=== PATIENT | female | born 1990 | race Hispanic/Latino ===

== ENCOUNTER 2018-07-05 10:56 | Emergency (ER) | payer SELFPAY ==
--- OUTSIDE RECORDS SUMMARY | 2018-07-05 10:58 | XMS REPORT ---
:1990 [facility] Address [address] [place] [address] [address] [place] [address] Care Team Providers Name Role Phone Unavailable Unavailable Unavailable Problems This patient has no known problems. Allergies, Adverse Reactions, Alerts This patient has no known allergies or adverse reactions. Medications This patient has no known medications.
[2018-07-05 13:19] LABS: Absolute Lymphocytes (CBC) 2.6 K/uL (0.7-4.9); Absolute Monocytes 0.3 K/uL (0.1-1.3); Absolute Neutrophil 2.2 K/uL (1.8-8.0); Basophils % 0.5 % (0-1.3); Eosinophils % 4.1 % (0-4.4); Hematocrit 40.3 % (36.0-45.0); MPV 9.4 fL (7.6-11.3); Monocytes % 5.7 % (3.3-12.3); RBC Red Blood Cell Count 4.64 M/uL (3.86-4.86)
[2018-07-05 13:24] LABS: Protime INR 0.96
[2018-07-05 13:42] LABS: ALT/SGPT 21 U/L (12-78); AST/SGOT 14 U/L (15-37); Albumin 3.5 g/dL (3.4-5.0); Alkaline Phosphatase 74 U/L (45-117); BUN Blood Urea Nitrogen 16 mg/dL (7-18); Bicarbonate 28 mmol/L (21-32); Bilirubin Direct < 0.1 mg/dL (0-0.2); Bilirubin Total 0.3 mg/dL (0.2-1.0); Glucose Level 79 mg/dL (74-106); Sodium Level 141 mmol/L (136-145)
[2018-07-05 14:05] LABS: Barbiturates NEGATIVE (NEGATIVE); Benzodiazepines NEGATIVE (NEGATIVE); Cocaine NEGATIVE (NEGATIVE); METHAMPHETAM NEGATIVE (NEGATIVE); Methadone NEGATIVE (NEGATIVE); Opiates NEGATIVE (NEGATIVE); Phencyclidine NEGATIVE (NEGATIVE); THC Cannibis NEGATIVE (NEGATIVE)
--- NOTE | 2018-07-05 14:05 | ER ---
Nurse's Notes [facility] Name: Gloria Esquivel Age: 28 yrs Sex: Female : 1990 Arrival Date: 07/05/2018 Time: 10:58 Bed 4 Private MD: Diagnosis: Adjustment disorder with depressed mood;Urinary tract infection, site not specified Presentation: 07/05 10:59 Presenting complaint: EMS states: Called out for unresponsive, on scene pt was hb responsive to painful stimuli, denied taking any meds/alcohol, had c section 20 days ago. Upon arrival pt responsive to verbal stimuli, crying, not verbal at this time. Transition of care: patient was not received from another setting of care. Onset of symptoms was July 05, 2018. Risk Assessment: Do you want to hurt yourself or someone else? Unable to obtain. Care prior to arrival: None. 10:59 Method Of Arrival: EMS: [facility] 10:59 Acuity: MARK 2 hb 14:21 Initial Sepsis Screen: Does the patient meet any 2 criteria? No. Patient's initial tw2 sepsis screen is negative. Does the patient have a suspected source of infection? No. Patient's initial sepsis screen is negative. Triage Assessment: 11:05 General: Appears in no apparent distress. Behavior is cooperative, crying. Pain: Denies hb pain. EENT: No deficits noted. No signs and/or symptoms were reported regarding the EENT system. Neuro: Level of Consciousness is awake, alert, obeys commands, Oriented to person. Cardiovascular: Heart tones S1 S2 present Capillary refill < 3 seconds Patient's skin is warm and dry. Respiratory: Airway is patent Respiratory effort is even, unlabored, Respiratory pattern is regular, symmetrical, Breath sounds are clear bilaterally. GI: No signs and/or symptoms were reported involving the gastrointestinal system. : No signs and/or symptoms were reported regarding the genitourinary system. Derm: Skin is intact, is healthy with good turgor. Musculoskeletal: No signs and/or symptoms reported regarding the musculoskeletal system. Historical: - Allergies: 11:21 No Known Allergies; hb - PSHx: 11:21 ; hb - Immunization history:: Adult Immunizations up to date. - Family history:: not pertinent. - Social history:: Smoking status: Patient/guardian denies using tobacco. - Ebola Screening: : Patient denies travel to an Ebola-affected area in the 21 days before illness onset. Screenin:24 Abuse screen: Denies threats or abuse. Denies injuries from another. Nutritional hb screening: No deficits noted. Tuberculosis screening: No symptoms or risk factors identified. Fall Risk Total Rodriguez Fall Scale indicates Low Risk Score (25-44 pts). Fall prevention measures have been instituted. Side Rails Up X 2 Frequent Obs/Assesments occuring As available Patient and Family Educated on Fall Prevention Program and strategies. Assessment: 11:05 General: see triage assessment. hb 11:45 Reassessment: Patient appears in no apparent distress at this time. Patient and/or hb family updated on plan of care and expected duration. Pain level reassessed. Patient is alert, oriented x 3, equal unlabored respirations, skin warm/dry/pink. 12:30 Reassessment: Patient appears in no apparent distress at this time. Patient and/or hb family updated on plan of care and expected duration. Pain level reassessed. Patient is alert, oriented x 3, equal unlabored respirations, skin warm/dry/pink. 13:30 Reassessment: Patient appears in no apparent distress at this time. Patient and/or hb family updated on plan of care and expected duration. Pain level reassessed. Patient is alert, oriented x 3, equal unlabored respirations, skin warm/dry/pink. 14:27 Reassessment: Discharge teaching done with Romeo Simon # [id number]. hb Vital Signs: 10:58 BP 119 / 100; Pulse 50; Resp 15; Temp 97.9; Pulse Ox 100% on R/A; Pain 0/10; hb 12:00 BP 126 / 88; Pulse 49; Resp 16; Pulse Ox 100% ; hb 13:30 BP 118 / 78; Pulse 54; Resp 16; Pulse Ox 100% on R/A; hb 10:58 Etta (FACES) ED Course: 10:58 Patient arrived in ED. tw2 10:58 Brianna Boland, ARABELLA is Primary Nurse. hb 11:02 Matt Duckworth MD is Attending Physician. gela 11:02 Triage completed. hb 11:03 Arm band placed on. hb 11:15 Patient has correct armband on for positive identification. Placed in gown. Bed in low hb position. Call light in reach. Side rails up X 1. 11:57 EKG done, by emergency vehicle technician. reviewed by Matt Duckworth MD. dt2 14:20 No provider procedures requiring assistance completed. IV discontinued, intact, tw2 bleeding controlled, No redness/swelling at site. Pressure dressing applied. Administered Medications: 14:17 Drug: Rocephin - (cefTRIAXone) 1 grams Route: IVPB; Infused Over: 30 mins; Site: right hb antecubital; 15:15 Follow up: Response: No adverse reaction; IV Status: Completed infusion hb Outcome: 14:04 Discharge ordered by . gela 14:21 Condition: stable tw2 14:26 Discharged to home ambulatory. hb 14:26 Discharge instructions given to patient, Instructed on discharge instructions, follow up and referral plans. medication usage, Demonstrated understanding of instructions, follow-up care, medications, Prescriptions given X 1. 14:28 Patient left the ED. hb Signatures: Matt Duckworth MD MD cha Baxter, Heather RN RN Marisol Smith RN RN tw2 Sandi Delgado dt2 Corrections: (The following items were deleted from the chart) 12:26 11:05 Neuro: Level of Consciousness is awake, alert, obeys commands, Oriented to hb person, place, time, situation, hb
--- NOTE | 2018-07-05 14:05 | EDPHYS ---
Physician Documentation [facility] Name: Gloria Esquivel Age: 28 yrs Sex: Female : 1990 Arrival Date: 07/05/2018 Time: 10:58 Bed 4 Private MD: ED Physician Matt Duckworth HPI: 07/05 11:55 This 28 yrs old Female presents to ER via EMS with complaints of Altered gela Mental Status. 11:55 The patient presents with confusion, decreased mental status. Onset: The gela symptoms/episode began/occurred 2 day(s) ago. Possible causes: unknown. Associated signs and symptoms: The patient has no apparent associated signs or symptoms. Current symptoms: In the emergency department the patient's symptoms have improved, mildly. Patient's baseline: Neuro: Motor: no deficits. The patient has not experienced similar symptoms in the past. Historical: - Allergies: 11:21 No Known Allergies; hb - PSHx: 11:21 ; hb - Immunization history:: Adult Immunizations up to date. - Family history:: not pertinent. - Social history:: Smoking status: Patient/guardian denies using tobacco. - Ebola Screening: : Patient denies travel to an Ebola-affected area in the 21 days before illness onset. ROS: 11:55 Constitutional: Negative for fever, chills, and weight loss, Eyes: Negative for injury, gela pain, redness, and discharge, ENT: Negative for injury, pain, and discharge, Neck: Negative for injury, pain, and swelling, Cardiovascular: Negative for chest pain, palpitations, and edema, Respiratory: Negative for shortness of breath, cough, wheezing, and pleuritic chest pain, Abdomen/GI: Negative for abdominal pain, nausea, vomiting, diarrhea, and constipation, Back: Negative for injury and pain, : Negative for injury, bleeding, discharge, and swelling, MS/Extremity: Negative for injury and deformity, Skin: Negative for injury, rash, and discoloration, Neuro: Negative for headache, weakness, numbness, tingling, and seizure, Allergy/Immunology: Negative for hives, rash, and allergies, Endocrine: Negative for neck swelling, polydipsia, polyuria, polyphagia, and marked weight changes, Hematologic/Lymphatic: Negative for swollen nodes, abnormal bleeding, and unusual bruising. 11:55 Psych: Positive for depression. Exam: 11:55 Constitutional: This is a well developed, well nourished patient who is awake, alert, gela and in no acute distress. Head/Face: Normocephalic, atraumatic. Eyes: Pupils equal round and reactive to light, extra-ocular motions intact. Lids and lashes normal. Conjunctiva and sclera are non-icteric and not injected. Cornea within normal limits. Periorbital areas with no swelling, redness, or edema. ENT: Nares patent. No nasal discharge, no septal abnormalities noted. Tympanic membranes are normal and external auditory canals are clear. Oropharynx with no redness, swelling, or masses, exudates, or evidence of obstruction, uvula midline. Mucous membranes moist. Neck: Trachea midline, no thyromegaly or masses palpated, and no cervical lymphadenopathy. Supple, full range of motion without nuchal rigidity, or vertebral point tenderness. No Meningismus. Chest/axilla: Normal chest wall appearance and motion. Nontender with no deformity. No lesions are appreciated. Cardiovascular: Regular rate and rhythm with a normal S1 and S2. No gallops, murmurs, or rubs. Normal PMI, no JVD. No pulse deficits. Respiratory: Lungs have equal breath sounds bilaterally, clear to auscultation and percussion. No rales, rhonchi or wheezes noted. No increased work of breathing, no retractions or nasal flaring. Abdomen/GI: Soft, non-tender, with normal bowel sounds. No distension or tympany. No guarding or rebound. No evidence of tenderness throughout. Back: No spinal tenderness. No costovertebral tenderness. Full range of motion. Female : Normal external genitalia. Skin: Warm, dry with normal turgor. Normal color with no rashes, no lesions, and no evidence of cellulitis. MS/ Extremity: Pulses equal, no cyanosis. Neurovascular intact. Full, normal range of motion. Neuro: Awake and alert, GCS 15, oriented to person, place, time, and situation. Cranial nerves II-XII grossly intact. Motor strength 5/5 in all extremities. Sensory grossly intact. Cerebellar exam normal. Normal gait. Psych: Awake, alert, with orientation to person, place and time. Behavior, mood, and affect are within normal limits. Vital Signs: 10:58 BP 119 / 100; Pulse 50; Resp 15; Temp 97.9; Pulse Ox 100% on R/A; Pain 0/10; hb 12:00 BP 126 / 88; Pulse 49; Resp 16; Pulse Ox 100% ; hb 13:30 BP 118 / 78; Pulse 54; Resp 16; Pulse Ox 100% on R/A; hb 10:58 Connell-Mccarthy (FACES) hb MDM: 11:02 Patient medically screened. [facility] 11:57 Data reviewed: vital signs, nurses notes, lab test result(s), EKG, radiologic studies. [facility] 07/05 11:18 Order name: Acetaminophen; Complete Time: 14:04 hb 07/05 11:18 Order name: Basic Metabolic Panel; Complete Time: 14:04 07/05 11:18 Order name: CBC with Diff; Complete Time: 13:39 07/05 11:18 Order name: ETOH Level; Complete Time: 14:04 07/05 11:18 Order name: Hepatic Function; Complete Time: 14:04 07/05 11:18 Order name: PT-INR; Complete Time: 13:39 07/05 11:18 Order name: Ptt, Activated; Complete Time: 13:39 07/05 11:18 Order name: Salicylate 07/05 11:18 Order name: Urine Drug Screen 07/05 11:18 Order name: EKG; Complete Time: 11:19 07/05 13:41 Order name: Urine Microscopic Only 07/05 13:49 Order name: Urine Dipstick--Ancillary (enter results) 07/05 13:49 Order name: Urine --Ancillary (enter results) 07/05 11:18 Order name: EKG - Nurse/Tech; Complete Time: 11:19 07/05 11:18 Order name: IV Saline Lock; Complete Time: 11:19 07/05 11:18 Order name: Labs collected and sent; Complete Time: 11:20 07/05 11:18 Order name: Urine Dipstick-Ancillary (obtain specimen); Complete Time: 13:47 07/05 11:58 Order name: Urine Test (obtain specimen); Complete Time: 13:47 [facility] 07/05 14:06 Order name: Vital Signs; Complete Time: 14:16 [facility] Administered Medications: 14:17 Drug: Rocephin - (cefTRIAXone) 1 grams Route: IVPB; Infused Over: 30 mins; Site: right hb antecubital; 15:15 Follow up: Response: No adverse reaction; IV Status: Completed infusion Disposition: 07/05/18 14:04 Discharged to Home. Impression: Adjustment disorder with depressed mood, Urinary tract infection, site not specified. - Condition is Stable. - Discharge Instructions: Adjustment Disorder, Adult, Urinary Tract Infection, Adult, Depression and Baby Blues, Urinary Tract Infection, Adult, [id number], Persistent Depressive Disorder, Persistent Depressive Disorder, [id number]. - Prescriptions for Keflex 500 mg Oral Capsule - take 1 capsule by ORAL route every 8 hours for 7 days; 21 capsule. - Medication Reconciliation Form, Thank You Letter, Antibiotic Education, Prescription Opioid Use form. - Follow up: Private Physician; When: 2 - 3 days; Reason: Recheck today's complaints, Continuance of care, Re-evaluation by your physician. - Problem is new. - Symptoms have improved. Signatures: Dispatcher [employer] [facility]VA Matt Duckworth MD MD cha Baxter, Heather, RN RN Marisol Smith RN RN tw2 Corrections: (The following items were deleted from the chart) 14:06 14:04 07/05/2018 14:04 Discharged to Home. Impression: Adjustment disorder with [facility] depressed mood. Condition is Stable. Discharge Instructions: Adjustment Disorder, Adult, Depression and Baby Blues, Persistent Depressive Disorder, Persistent Depressive Disorder, [id number]. Forms are Medication Reconciliation Form, Thank You Letter, Antibiotic Education, Prescription Opioid Use. Follow up: Private Physician; When: 2 - 3 days; Reason: Recheck today's complaints, Continuance of care, Re-evaluation by your physician. Problem is new. Symptoms have improved. [facility] 14:28 14:06 07/05/2018 14:04 Discharged to Home. Impression: Adjustment disorder with hb depressed mood; Urinary tract infection, site not specified. Condition is Stable. Discharge Instructions: Adjustment Disorder, Adult, Depression and Baby Blues, Persistent Depressive Disorder, Persistent Depressive Disorder, [id number]. Forms are Medication Reconciliation Form, Thank You Letter, Antibiotic Education, Prescription Opioid Use. Follow up: Private Physician; When: 2 - 3 days; Reason: Recheck today's complaints, Continuance of care, Re-evaluation by your physician. Problem is new. Symptoms have improved. gela
[2018-07-05 14:21] LABS: Urine Blood 2+ (NEG); Urine Glucose NEGATIVE (NEG); Urine Protein NEGATIVE (NEG); Urine Specific Gravity 1.015 (1.005-1.030)
[2018-07-05] MEDS ORDERED: CEFTRIAXONE/SWI 1gm 1 GM/10 ML SYR ONE (14:29)
[2018-07-05 15:03] LABS: Urine Bacteria <20 /HPF (<20); Urine Culture Reflex Order REFLEXED; Urine RBC <5 /HPF (NONE SEEN)
--- NOTE | 2018-07-05 21:17 | EKG ---
Test Date: 2018-07-05 Test Time: 11:47:24 Bale Stacker: VERONICA MEASUREMENT RESULTS: Intervals: Rate: 43 [place]: 154 QRSD: 88 QT: 478 QTc: 403 [place]: P: 49 [place]: 154 QRS: 81 T: 79 INTERPRETIVE STATEMENTS: Marked sinus bradycardia Abnormal ECG No previous ECG available for comparison Electronically Signed On 07-05-18 21:16:48 CDT by Brice Diaz
== END 2018-07-05 14:28 | disposition home or self-care (01) ==
LOC: ER 10:56
DX: F43.21 Adjustment disorder with depressed mood (principal); N39.0 Urinary tract infection, site not specified
CPT/HCPCS: 36415; 80048; 80076; 80307; 80320; 80329; 81003; 81015; 81025; 85025; 85610; 85730; 87077; 87086; 87088; 87186; 93005; 96365; 99284; J0696

== ENCOUNTER 2019-07-11 09:36 | Emergency (ER) | payer SELFPAY, OTHER ==
--- OUTSIDE RECORDS SUMMARY | 2019-07-11 09:39 | XMS REPORT ---
:1990 [facility] Address [address] [place] [address] Care Team Providers Name Role Phone Unavailable Unavailable Unavailable Problems This patient has no known problems. Allergies, Adverse Reactions, Alerts This patient has no known allergies or adverse reactions. Medications This patient has no known medications.
[2019-07-11 10:50] LABS: Urine Bacteria <20 /HPF (<20); Urine Culture Reflex Order NOT NEEDED; Urine Mucus 2+ /HPF (NONE SEEN); Urine RBC <5 /HPF (NONE SEEN)
[2019-07-11 10:53] LABS: Absolute Lymphocytes (CBC) 1.8 K/uL (0.7-4.9); Basophils % 0.4 % (0-1.3); Hematocrit 36.5 % (36.0-45.0); Lymphocytes % 29.9 % (15.3-44.8); MPV 8.7 fL (7.6-11.3); RBC Red Blood Cell Count 4.45 M/uL (3.86-4.86)
[2019-07-11 11:28] LABS: ALT/SGPT 16 U/L (12-78); AST/SGOT 13 U/L (15-37); Albumin 3.5 g/dL (3.4-5.0); Alkaline Phosphatase 44 U/L (45-117); BUN Blood Urea Nitrogen 11 mg/dL (7-18); Bicarbonate 26 mmol/L (21-32); Bilirubin Direct < 0.1 mg/dL (0-0.2); Bilirubin Total 0.3 mg/dL (0.2-1.0); Glucose Level 81 mg/dL (74-106); HCG, Quantitative > 200000 mIU/mL (1-3); Lipase 86 U/L (73-393); Potassium 3.7 mmol/L (3.5-5.1); Protein, Total 7.3 g/dL (6.4-8.2); Sodium Level 137 mmol/L (136-145)
--- NOTE | 2019-07-11 12:07 | RAD REPORT ---
EXAM DESCRIPTION: US - Abdomen Exam Limited - 07/11/2019 11:51 am CLINICAL HISTORY: ABD PAIN COMPARISON: No comparisons FINDINGS: The gallbladder demonstrates 4 mm gallbladder polyp. No gallstone is visualized. No perich olecystic fluid or gallbladder wall thickening. The common bile duct is normal measuring 4 mm. The liver demonstrates no findings of intrahepatic biliary dilatation. IMPRESSION: 4 mm gallbladder polyp. No gallstones visualized.
--- NOTE | 2019-07-11 12:15 | RAD REPORT ---
EXAM DESCRIPTION: US - Transvaginal OB - 07/11/2019 11:59 am CLINICAL HISTORY: ABD PAIN COMPARISON: No comparisons FINDINGS: A single gestational sac is seen within the uterus. The shape of the sac is within normal limits for gestational age. Within the sac is a single pole with crown-rump length of 19 mm, co rrelating to estimated gestational age of 8 weeks 2 days. Estimated date of delivery is 02/18/2020. S mall subchorionic bleed is seen inferiorly. Heart rate is 166 BPM. The placenta is not yet developed due to early gestational age. The maternal adnexa and ovaries are within normal limits. Normal Doppler blood flow was demonstrated to both ovaries. 5 cm right ovarian cyst. IMPRESSION: Single live early intrauterine gestation with estimated gestational age of 8 weeks 2 day s, JUNE 02/18/2020. Small subchorionic bleed.
--- NOTE | 2019-07-11 12:54 | ER ---
Nurse's Notes [facility] Name: Yeni Esquivel Age: 29 yrs Sex: Female : 1990 Arrival Date: 07/11/2019 Time: 09:42 Bed 20 Private MD: Diagnosis: Acute upper respiratory infection, unspecified;Unspecified abdominal pain; state;Other ovarian cysts Presentation: 07/10 10:00 Chief complaint: Patient states: Patient reports sore throat, stomachache, cough and ae4 fever, fever that started yesterday. Patient reports she is one month . Coronavirus screen: Patient reports a cough. Patient denies shortness of breath or difficulty breathing. Patient denies measured and/or subjective temperature greater than 100.4F. Patient denies travel on a cruise ship or to a country the [facility] currently lists as an affected area. Patient denies contact with known and/or suspected case of COVID-19. Ebola Screen: Patient denies travel to an Ebola-affected area in the 21 days before illness onset. Risk Assessment: Do you want to hurt yourself or someone else? Patient reports no desire to harm self or others. 10:00 Method Of Arrival: Ambulatory ae4 10:00 Acuity: MARK 3 ae4 10:43 Initial Sepsis Screen: Does the patient meet any 2 criteria? No. Patient's initial ae4 sepsis screen is negative. Does the patient have a suspected source of infection? Yes: Other: Patient reports pain upon urination and sore throat. 10:54 Onset of symptoms was July 10, 2019. ae4 Triage Assessment: 10:03 General: Appears in no apparent distress. comfortable, slender, Behavior is calm, ae4 cooperative, quiet. Pain: Complains of pain in abdomen. EENT: Reports sore throat.. Neuro: Level of Consciousness is awake, alert, obeys commands, Oriented to person, place, time, situation. Cardiovascular: Patient's skin is warm and dry. Respiratory: Reports cough that is Airway is patent Respiratory effort is even, unlabored, Denies shortness of breath. GI: Reports lower abdominal pain, upper abdominal pain. Derm: Skin is normal. RECEIVING CLERK: 10:03 LMP 05/22/2019 ae4 Historical: - Allergies: 10:03 No Known Allergies; ae4 - Home Meds: 10:03 None [Active]; ae4 - PMHx: 10:03 None; ae4 - PSHx: 10:03 ; ae4 - Immunization history:: Adult Immunizations up to date. - Social history:: Smoking status: Patient denies any tobacco usage or history of. Screenin:53 Abuse screen: Denies threats or abuse. Denies injuries from another. Nutritional ae4 screening: No deficits noted. Tuberculosis screening: No symptoms or risk factors identified. Fall Risk None identified. Assessment: 12:51 Reassessment: Patient appears in no apparent distress at this time. No changes from ae4 previously documented assessment. Patient and/or family updated on plan of care and expected duration. Pain level reassessed. Nurse and provider verified with patient that she reported cough and SOB, patient states "I feel like I am suffocating". 13:36 Reassessment: Patient appears in no apparent distress at this time. No changes from ae4 previously documented assessment. Patient and/or family updated on plan of care and expected duration. Pain level reassessed. Vital Signs: 10:00 BP 105 / 71; Pulse 58; Resp 16; Temp 98.3; Pulse Ox 100% on R/A; Weight 54.43 kg; ae4 Height 5 ft. 6 in. (167.64 cm) (R); 12:52 BP 107 / 66; Pulse 55; Resp 16; Pulse Ox 100% on R/A; ae4 13:35 BP 117 / 75; Pulse 68; Resp 18; Pulse Ox 100% on R/A; ae4 10:00 Body Mass Index 19.37 (54.43 kg, 167.64 cm) ae4 ED Course: 09:42 Patient arrived in ED. fj1 09:52 Matt Myles PA is PHCP. cp 09:52 Luis Garza MD is Attending Physician. cp 09:59 Karthik Lucio RN is Primary Nurse. ae4 10:02 Triage completed. ae4 10:06 Arm band placed on right wrist. ae4 10:06 Placed in gown. Bed in low position. Call light in reach. Side rails up X 1. Cardiac ae4 monitor on. Pulse ox on. NIBP on. 10:10 Urine collected: clean catch specimen, clear. dh3 10:31 Inserted saline lock: 20 gauge in right antecubital area, using aseptic technique. ae4 Blood collected. 11:53 US Transvaginal Ob In Process Unspecified. EDMS 11:53 US Abdomen Limited: upper abdomen pain In Process Unspecified. EDMS 13:36 No provider procedures requiring assistance completed. IV discontinued, intact, ae4 bleeding controlled, No redness/swelling at site. Pressure dressing applied. 14:07 Health Dept notified COVID test sent to lab/ PUI # [id number]/ lab notified. eb Administered Medications: No medications were administered Outcome: 12:53 Discharge ordered by MD. cp 13:37 Discharged to home ambulatory. ae4 13:37 Condition: stable 13:37 Discharge instructions given to patient, Instructed on discharge instructions, follow up and referral plans. Demonstrated understanding of instructions, Prescriptions given X 1. 13:37 Patient left the ED. ae4 Addendum: 07/13/2019 12:08 Addendum: Other Notified pt of negative COVID-19 swab results. Pt advised to continue d m5 to monitor symptoms, remain in isolation until fever free for 72 hours and to return if symptoms worsen. Signatures: Dispatcher [employer] EDMS Jaz Hair, RN RN dm5 Matt Myles PA PA cp Herrera, Deanna 3 Elen Green Andrea RN RN ae4 Dario Ceballos fj1
--- NOTE | 2019-07-11 12:54 | EDPHYS ---
Physician Documentation [facility] Name: Yeni Esquivel Age: 29 yrs Sex: Female : 1990 Arrival Date: 07/11/2019 Time: 09:42 Bed 20 Private MD: ED Physician Luis Garza HPI: 07/10 10:20 This 29 yrs old Female presents to ER via Ambulatory with complaints of Fever, cp BODY ACHES, PATIENT IS . 10:20 The patient reports fever, that was measured at 100.5 degrees Fahrenheit. Severity of cp symptoms: in the emergency department the symptoms are unchanged despite home interventions. 10:20 Associated signs and symptoms: Pertinent positives: abdominal pain, cough, headache, cp shortness of breath, sore throat, Pertinent negatives: chest pain, diarrhea, skin rash, vomiting. 10:20 Onset: The symptoms/episode began/occurred yesterday. Patient reports she is cp approximately 1 month into her third . No care with this . Patient denies any recent travel or known exposure to coronavirus. 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 - Social history:: Smoking status: Patient denies any tobacco usage or history of. ROS: 10:30 Constitutional: Negative for body aches, chills, fever, poor PO intake. cp 10:30 Eyes: Negative for injury, pain, redness, and discharge. cp 10:30 ENT: Positive for sore throat, Negative for drainage from ear(s), ear pain, difficulty swallowing, difficulty handling secretions. 10:30 Cardiovascular: Negative for chest pain, palpitations. 10:30 Respiratory: Positive for cough, with no reported sputum, shortness of breath, Negative for wheezing. 10:30 Abdomen/GI: Positive for abdominal pain, Negative for nausea, vomiting, and diarrhea. 10:30 Back: Negative for radiated pain. 10:30 : Positive for urinary frequency, Negative for vaginal bleeding, vaginal discharge. 10:30 Skin: Negative for cellulitis, rash. 10:30 Neuro: Positive for headache, Negative for altered mental status, weakness. 10:30 All other systems are negative. Exam: 10:35 Constitutional: The patient appears in no acute distress, alert, awake, cp non-diaphoretic, non-toxic, well developed, well nourished. 10:35 Head/Face: Normocephalic, atraumatic. cp 10:35 Eyes: Periorbital structures: appear normal, Pupils: equal, round, and reactive to light and accomodation, Extraocular movements: intact throughout, Conjunctiva: normal, no exudate, no injection, Sclera: no appreciated abnormality, Lids and lashes: appear normal, bilaterally. 10:35 ENT: External ear(s): are unremarkable, Ear canal(s): are normal, clear, TM's: are normal, no evidence of bulging, no erythema, Nose: is normal, Mouth: is normal, Posterior pharynx: is normal, airway is patent, no erythema, no exudate. 10:35 Neck: ROM/movement: is normal, is supple, without pain, no range of motions limitations, no meningismus, Lymph nodes: no appreciated lymphadenopathy. 10:35 Chest/axilla: Inspection: normal, Palpation: is normal, no crepitus, no tenderness. 10:35 Cardiovascular: Rate: bradycardic, Rhythm: regular. 10:35 Respiratory: the patient does not display signs of respiratory distress, Respirations: normal, no use of accessory muscles, no retractions, labored breathing, is not present, Breath sounds: are clear throughout, no decreased breath sounds, no stridor, no wheezing. 10:35 Abdomen/GI: Inspection: abdomen appears normal, Bowel sounds: active, all quadrants, Palpation: soft, in all quadrants, mild abdominal tenderness, in the right upper quadrant and left upper quadrant, rebound tenderness, is not appreciated, voluntary guarding, is not appreciated, involuntary guarding, is not appreciated. 10:35 Back: pain, is absent, ROM is normal. 10:35 Skin: no rash present. Vital Signs: 10:00 BP 105 / 71; Pulse 58; Resp 16; Temp 98.3; Pulse Ox 100% on R/A; Weight 54.43 kg; ae4 Height 5 ft. 6 in. (167.64 cm) (R); 12:52 BP 107 / 66; Pulse 55; Resp 16; Pulse Ox 100% on R/A; ae4 13:35 BP 117 / 75; Pulse 68; Resp 18; Pulse Ox 100% on R/A; ae4 10:00 Body Mass Index 19.37 (54.43 kg, 167.64 cm) ae4 MDM: 10:16 Patient medically screened. cp 10:30 Differential diagnosis: viral Infection, bacterial infection, bronchitis, pneumonia cp UTI, gastroenteritis. 12:52 Data reviewed: vital signs, nurses notes, lab test result(s), radiologic studies, cp ultrasound, and as a result, I will discharge patient. 12:52 Counseling: I had a detailed discussion with the patient and/or guardian regarding: the cp historical points, exam findings, and any diagnostic results supporting the discharge/admit diagnosis, lab results, radiology results. ED course: VSS. Patient appears non-toxic and no signs of respiratory distress noted. Will discharge to home for continued monitoring and patient instructed to self quarantine for next 14 days with family. Testing for coronavirus performed. 07/10 10:17 Order name: Influenza Screen (a \T\ B); Complete Time: 12:17 07/10 12:17 Interpretation: Reviewed. 07/10 10:17 Order name: Strep; Complete Time: 12:17 07/10 12:18 Interpretation: Reviewed. 07/10 10:17 Order name: Basic Metabolic Panel; Complete Time: 12:17 07/10 12:18 Interpretation: Reviewed. 07/10 10:17 Order name: CBC with Diff; Complete Time: 11:05 07/10 11:05 Interpretation: Normal except: MCV 81.9. 07/10 10:17 Order name: Creatinine for Radiology; Complete Time: 12:17 07/10 10:17 Order name: Hepatic Function; Complete Time: 12:17 07/10 12:17 Interpretation: Normal except: AST 13; ALK 44; GLOB 3.8; A/G 0.9. 07/10 10:17 Order name: Lipase; Complete Time: 12:17 07/10 10:17 Order name: HCG-Quantitative; Complete Time: 12:17 07/10 12:17 Interpretation: HCGQ > 885084; Reviewed. 07/10 10:17 Order name: Urine Microscopic Only; Complete Time: 11:05 07/10 11:05 Interpretation: Normal except: SQEPI 5-10. 07/10 10:18 Order name: Urine Dipstick--Ancillary (enter results) 07/10 10:18 Order name: Urine --Ancillary (enter results) 07/10 10:25 Order name: Abo/rh Typing; Complete Time: 12:17 07/10 12:19 Interpretation: Reviewed. 07/10 11:15 Order name: Throat Culture [facility] 07/10 10:17 Order name: IV Saline Lock; Complete Time: 10:42 07/10 10:17 Order name: Labs collected and sent; Complete Time: 10:43 07/10 10:17 Order name: Urine Dipstick-Ancillary (obtain specimen); Complete Time: 10:26 07/10 10:17 Order name: Urine Test (obtain specimen); Complete Time: 10:20 07/10 11:10 Order name: US Transvaginal Ob; Complete Time: 12:17 07/10 12:19 Interpretation: Report reviewed. 07/10 11:10 Order name: US Abdomen Limited: upper abdomen pain; Complete Time: 12:17 07/10 12:19 Interpretation: Report reviewed. 07/10 11:10 Order name: NPO; Complete Time: 11:18 cp Administered Medications: No medications were administered Disposition: 18:42 I agree with the assessment and plan of care. kdr Disposition: 07/11/19 12:53 Discharged to Home. Impression: Acute upper respiratory infection, unspecified, Unspecified abdominal pain, state, Other ovarian cysts. - Condition is Stable. - Discharge Instructions: Abdominal Pain During , Upper Respiratory Infection, Adult, Viral Respiratory Infection, First Trimester of . - Prescriptions for Vitamin 27- 0.8 mg Oral Tablet - take 1 tablet by ORAL route once daily; 60 tablet. - Medication Reconciliation Form, Thank You Letter, Antibiotic Education, Prescription Opioid Use form. - Follow up: Private Physician; When: 2 - 3 days; Reason: Worsening of condition. - Problem is new. - Symptoms have improved. Signatures: Dispatcher [facility] Luis Garza MD MD kdr Matt Myles PA PA cp Naveed, Karthik, RN RN ae4 Corrections: (The following items were deleted from the chart) 10:21 10:18 RH TYPE+BB.LAB.BRZ ordered. EDMS EDMS 13:37 12:53 07/11/2019 12:53 Discharged to Home. Impression: Acute upper respiratory ae4 infection, unspecified; Unspecified abdominal pain; state; Other ovarian cysts. Condition is Stable. Forms are Medication Reconciliation Form, Thank You Letter, Antibiotic Education, Prescription Opioid Use. Follow up: Private Physician; When: 2 - 3 days; Reason: Worsening of condition. Problem is new. Symptoms have improved. cp 07/11 07:07/10 10:20 Onset: The symptoms/episode began/occurred today, cp cp 07/11 07:07/10 10:20 Associated signs and symptoms: Pertinent positives: abdominal pain, sore cp throat, body aches, Pertinent negatives: chest pain, cough, diarrhea, vomiting, cp
[2019-07-11 13:47] VITALS: TEMP 98.3; O2SAT 100
[2019-07-11 13:51] VITALS: BP 117/75
[2019-07-11 14:08] LABS: Urine Blood NEGATIVE (NEG); Urine Glucose NEGATIVE (NEG); Urine Protein NEGATIVE (NEG); Urine Specific Gravity 1.025 (1.005-1.030); Urine pH 8.5 (5.0-7.0)
== END 2019-07-11 13:37 | disposition home or self-care (01) ==
LOC: ER 09:36
DX: O99.511 Diseases of the respiratory system complicating pregnancy, first trimester (principal); Z03.818 Encounter for observation for suspected exposure to other biological agents ruled out; Z3A.08 8 weeks gestation of pregnancy
CPT/HCPCS: 36415; 76705; 76817; 80048; 80076; 81003; 81015; 81025; 83690; 84702; 85025; 86900; 86901; 87070; 87081; 87804; 99284; U0001

== ENCOUNTER 2020-07-31 15:16 | Emergency (ER) | payer OTHER, SELFPAY ==
--- OUTSIDE RECORDS SUMMARY | 2020-07-31 15:28 | XMS REPORT | Continuity of Care Document ---
:1990 Author Organization [facility] t Address [address] [place] [address] Care Team Providers Name Role Phone Michael Friedman DO Attending Clinician Doctor Unassigned, Loa Attending Clinician Unavailable Nahun Luna Attending Clinician Problems This patient has no known problems. Allergies, Adverse Reactions, Alerts This patient has no known allergies or adverse reactions. Medications This patient has no known medications. Procedures This patient has no known procedures. Encounters Start End Encounter Admission Attending Care Care Encounter Source Date/Time Date/Time Type Type Clinicians Facility Department ID 2020-07-30 2020-07-30 Emergency STEPHAN Friedman [id number] 10:06:00 10:54:00 Michael Anderson [id number] [place] [id number] [place] [id number] 2020-07-30 2020-07-30 Orders Doctor BEN [id number] 00:00:00 00:00:00 Only UnassignedROCIO [id number] [place]a [facility] [id number] 2020-03-29 2020-03-29 Office STEPHAN Blake [id number] 14:35:17 15:32:41 Visit Yariel Garnica [facility] [id number] [facility] [id number] MATERNAL [id number] & CHILD [address] [place] [address] - [place] Results This patient has no known results.
--- NOTE | 2020-07-31 19:28 | EDPHYS ---
Physician Documentation [facility] Name: Yeni Westbrook Age: 30 yrs Sex: Female : 1990 Arrival Date: 07/31/2020 Time: 15:26 Bed 21 Private MD: ED Physician Matt Duckworth HPI: 07/31 18:36 This 30 yrs old Female presents to ER via EMS with complaints of Cough, kb Nausea/Vomiting. 18:36 The patient or guardian reports cough, that is intermittent, described as mild, with no kb sputum. Onset: The symptoms/episode began/occurred today. Severity of symptoms: At their worst the symptoms were moderate, in the emergency department the symptoms are unchanged. Modifying factors: The symptoms are alleviated by nothing, the symptoms are aggravated by nothing. Associated signs and symptoms: Pertinent positives: rhinorrhea, Pertinent negatives: chest pain, diarrhea, ear ache, fever, nausea, sore throat, vomiting. The patient has not experienced similar symptoms in the past. The patient has not recently seen a physician. 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 - Social history:: Smoking status: Patient denies any tobacco usage or history of. ROS: 18:34 Constitutional: Negative for fever, chills, and weight loss, Cardiovascular: Negative kb for chest pain, palpitations, and edema, Abdomen/GI: Negative for abdominal pain, nausea, vomiting, diarrhea, and constipation, MS/Extremity: Negative for injury and deformity, Skin: Negative for injury, rash, and discoloration, Neuro: Negative for headache, weakness, numbness, tingling, and seizure. 18:34 ENT: Positive for rhinorrhea, sinus congestion. 18:34 Respiratory: Positive for cough, with no reported sputum, Negative for dyspnea on exertion, hemoptysis, orthopnea, pleurisy, shortness of breath, sputum production, wheezing. Exam: 18:36 Constitutional: This is a well developed, well nourished patient who is awake, alert, kb and in no acute distress. Head/Face: Normocephalic, atraumatic. ENT: Moist Mucous membranes Cardiovascular: Regular rate and rhythm with a normal S1 and S2. No gallops, murmurs, or rubs. No pulse deficits. Respiratory: Respirations even and unlabored. No increased work of breathing, no retractions or nasal flaring. Abdomen/GI: Soft, non-tender. No distention Skin: Warm, dry with normal turgor. Normal color. MS/ Extremity: Pulses equal, no cyanosis. Neurovascular intact. Full, normal range of motion. Neuro: Awake and alert, GCS 15, oriented to person, place, time, and situation. Moves all extremities. Normal gait. Vital Signs: 15:41 BP 104 / 77; Pulse 96; Resp 18 S; Temp 98.4(TE); Pulse Ox 97% on R/A; Weight 56.7 kg ca1 (R); Height 5 ft. 6 in. (167.64 cm) (R); Pain 0/10; 18:30 BP 110 / 81; Pulse 89; Resp 16 S; Pulse Ox 99% on R/A; ca1 15:41 Body Mass Index 20.18 (56.70 kg, 167.64 cm) ca1 MDM: 17:23 Patient medically screened. kb 18:34 Data reviewed: vital signs, nurses notes. Data interpreted: Pulse oximetry: on room air kb is 97 %. Interpretation: normal. Counseling: I had a detailed discussion with the patient and/or guardian regarding: the historical points, exam findings, and any diagnostic results supporting the discharge/admit diagnosis, lab results, the need for outpatient follow up, a family practitioner, to return to the emergency department if symptoms worsen or persist or if there are any questions or concerns that arise at home. Administered Medications: No medications were administered Disposition: 08/01 08:29 Co-signature as Attending Physician, Matt Duckworth MD I agree with the assessment and gela plan of care. Disposition: 07/31/20 19:28 Discharged to Home. Impression: Acute upper respiratory infection, unspecified. - Condition is Stable. - Discharge Instructions: Upper Respiratory Infection, Adult, [id number]. - Medication Reconciliation Form, Thank You Letter, Antibiotic Education, Prescription Opioid Use form. - Follow up: Emergency Department; When: As needed; Reason: Worsening of condition. Follow up: Private Physician; When: 2 - 3 days; Reason: Recheck today's complaints, Continuance of care, Re-evaluation by your physician. Signatures: Dispatcher [employer] Shahrzad Chowdhury, SP[employer]-C [employer]-Matt Polk MD MD cha Munoz, Edgar, RN RN em Radha Dobbins RN RN ca1 Corrections: (The following items were deleted from the chart) 07/31 18:08 17:53 Influenza Screen (A \T\ B)+BA.LAB.BRZ ordered. [facility] 18:08 17:53 CORONAVIRUS+MR.LAB.BRZ ordered. [facility] 19:38 19:28 07/31/2020 19:28 Discharged to Home. Impression: Acute upper respiratory em infection, unspecified. Condition is Stable. Forms are Medication Reconciliation Form, Thank You Letter, Antibiotic Education, Prescription Opioid Use. Follow up: Emergency Department; When: As needed; Reason: Worsening of condition. Follow up: Private Physician; When: 2 - 3 days; Reason: Recheck today's complaints, Continuance of care, Re-evaluation by your physician. kb
--- NOTE | 2020-07-31 19:28 | ER ---
Nurse's Notes [facility] Name: Yeni Westbrook Age: 30 yrs Sex: Female : 1990 Arrival Date: 07/31/2020 Time: 15:26 Bed 21 Private MD: Diagnosis: Acute upper respiratory infection, unspecified Presentation: 07/31 15:41 Chief complaint: Patient states: cough and congestion this morning. Coronavirus screen: ca1 Client denies travel out of the [place] in the last 14 days. congestion, cough unrelated to allergies, Client presents with at least one sign or symptom that may indicate coronavirus-19. Standard/surgical mask placed on the client. Provider contacted for isolation considerations. Ebola Screen: Patient negative for fever greater than or equal to 101.5 degrees Fahrenheit, and additional compatible Ebola Virus Disease symptoms Patient denies exposure to infectious person. Patient denies travel to an Ebola-affected area in the 21 days before illness onset. No symptoms or risks identified at this time. Initial Sepsis Screen: Does the patient meet any 2 criteria? No. Patient's initial sepsis screen is negative. Does the patient have a suspected source of infection? No. Patient's initial sepsis screen is negative. Risk Assessment: Do you want to hurt yourself or someone else? Patient reports no desire to harm self or others. Onset of symptoms was July 31, 2020. 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 - Social history:: Smoking status: Patient denies any tobacco usage or history of. Screenin:27 Abuse screen: Denies threats or abuse. Denies injuries from another. Nutritional ca1 screening: No deficits noted. Tuberculosis screening: No symptoms or risk factors identified. Fall Risk None identified. Assessment: 17:27 General: Appears in no apparent distress. comfortable, Behavior is calm, cooperative, ca1 appropriate for age. Pain: Denies pain. Neuro: Level of Consciousness is awake, alert, obeys commands, Oriented to person, place, time, situation, Appropriate for age. Respiratory: Reports cough that is Airway is patent Respiratory effort is even, unlabored, Respiratory pattern is regular, symmetrical, Breath sounds are clear bilaterally. GI: Abdomen is flat, non-distended, Bowel sounds present X 4 quads. Abd is soft and non tender X 4 quads. Patient currently denies nausea, vomiting. :. EENT: Reports nasal congestion nasal discharge. Derm: Skin is intact, is healthy with good turgor, Skin is pink, warm \T\ dry. Musculoskeletal: Circulation, motion, and sensation intact. Capillary refill < 3 seconds. 18:30 Reassessment: Patient appears in no apparent distress at this time. Patient and/or ca1 family updated on plan of care and expected duration. Pain level reassessed. Patient is alert, oriented x 3, equal unlabored respirations, skin warm/dry/pink. Vital Signs: 15:41 BP 104 / 77; Pulse 96; Resp 18 S; Temp 98.4(TE); Pulse Ox 97% on R/A; Weight 56.7 kg ca1 (R); Height 5 ft. 6 in. (167.64 cm) (R); Pain 0/10; 18:30 BP 110 / 81; Pulse 89; Resp 16 S; Pulse Ox 99% on R/A; ca1 15:41 Body Mass Index 20.18 (56.70 kg, 167.64 cm) ca1 ED Course: 15:26 Patient arrived in ED. ca1 15:42 Triage completed. ca1 15:42 Arm band placed on right wrist. ca1 17:22 Shahrzad Chowdhury FNP-C [facility]. kb 17:22 Matt Duckworth MD is Attending Physician. kb 17:27 Radha Dobbins, ARABELLA is Primary Nurse. ca1 17:27 Patient has correct armband on for positive identification. Call light in reach. Pulse ca1 ox on. NIBP on. 19:38 No provider procedures requiring assistance completed. Patient did not have IV access em during this emergency room visit. Administered Medications: No medications were administered Outcome: 19:28 Discharge ordered by . kb 19:38 Discharged to home ambulatory. em 19:38 Condition: good 19:38 Discharge instructions given to patient, Instructed on discharge instructions, follow up and referral plans. Demonstrated understanding of instructions, follow-up care. 19:38 Patient left the ED. em Signatures: Shahrzad Chowdhury, CHIKIS-C CHIKIS-Benitez Corbett, RN RN em Radha Dobbins RN RN ca1
[2020-07-31 20:00] VITALS: BP 104/77; TEMP 98.4; O2SAT 97
== END 2020-07-31 19:38 | disposition home or self-care (01) ==
LOC: ER 15:16
DX: J06.9 Acute upper respiratory infection, unspecified (principal); R11.2 Nausea with vomiting, unspecified
CPT/HCPCS: 99283